=== PATIENT | female | born 1995 | race Caucasian/White ===

== ENCOUNTER 2024-01-08 23:09 | Emergency (ER) | payer MEDICAID ==
[~2024-01-08] VITALS: Ht 160 cm; Wt 57.0 kg
[2024-01-08] MEDS ORDERED: CefTRIAXone 1000mg IM Kit (w/lidocaine diluent) IM ONE (23:35)
[2024-01-08 23:44] LABS: BILIRUBIN,URINE SMALL (Neg); CLARITY,URINE SLIGHTLY CLOUDY (Clear); GLUCOSE, URINE NEGATIVE (Neg); KETONES,URINE NEGATIVE (Neg); LEUKOCYTE ESTERASE ,URINE SMALL (Neg); NITRITES, URINE NEGATIVE (Neg); OCCULT BLOOD,URINE NEGATIVE (Neg); PH,URINE 5.5 (4.8-8.0); PROTEIN,URINE NEGATIVE (Neg); URINE HCG NEGATIVE (NEG); UROBILINOGEN,URINE 0.2 E.U/dL (0.2-1.0)
[2024-01-08 23:45] LABS: COLOR,URINE DARK YELLOW (Yellow); UA COLLECTION TYPE CLN CATCH MIDSTREAM
[2024-01-08 23:52] LABS: AMORPHOUS URATES 1+; BACTERIA,URINE 1+ /HPF (Neg); MUCUS STRANDS FEW /LPF (Neg); RENAL CELLS, URINE FEW /HPF; SQUAMOUS EPITHELIAL CELL,UR MODERATE /LPF (FEW); TRANSITIONAL EPI CELLS,URINE FEW /HPF
[2024-01-08 23:53] LABS: CAL OXALATE CRYSTALS 1+ /HPF (NEGATIVE)
[2024-01-09] MEDS: azithromycin 250mg tablet PO ONE (01:34)
[2024-01-09] MEDS: LEVONORGESTREL 1.5MG tablet 1.5 MG TABLET PO ONE (01:34)
[2024-01-09] MEDS: TINIDAZOLE 500 MG TABLET PO ONE (01:34)
[2024-01-09] MEDS: CefTRIAXone 500MG IM Kit w/LIDOcaine (for pt below or = to 150kg) IM ONE (01:36)
[2024-01-09 02:03] VITALS: BP 107/78; PULSE 84; RESP 14; TEMP 98.2; O2SAT 99
[2024-01-11 08:22] LABS: CHLAMYDIA TRACHOMATIS, NAA Negative (Negative)
== END 2024-01-09 02:09 | disposition home or self-care (01) ==
LOC: ER 23:12
DX: Z11.3 Encounter for screening for infections with a predominantly sexual mode of transmission (principal); T76.21XA Adult sexual abuse, suspected, initial encounter; R82.90 Unspecified abnormal findings in urine; Z88.8 Allergy status to other drugs, medicaments and biological substances; Z88.0 Allergy status to penicillin
CPT/HCPCS: 36415; 81001; 81025; 87088; 87491; 87591; 96372; 99284; J0696